=== PATIENT | female | born 1960 | race Two or more races ===

== ENCOUNTER → 2021-01-09 | Emergency (ER) | payer OTHER ==
[~2021-01-09] VITALS: Ht 157.5 cm; Wt 67.6 kg
[~2021-01-09] MED LIST: DEXAMETHASONE OP; LEVOFLOXACIN5 ML; ZYRTEC10 M3 PO
== END | disposition home or self-care (01) ==
LOC: ER 12:10
DX: H57.89 Other specified disorders of eye and adnexa (principal)